=== PATIENT | male | born 1995 | race Caucasian/White ===

== ENCOUNTER 2021-02-19 13:30 | Emergency (ER) | payer MEDICAID ==
[~2021-02-19] VITALS: Ht 152.4 cm; Wt 61.4 kg
[2021-02-19 14:02] VITALS: BP 125/74
== END 2021-02-19 16:52 | disposition home or self-care (01) ==
LOC: ER 13:31
DX: Z20.822 Contact with and (suspected) exposure to COVID-19 (principal)
CPT/HCPCS: 87635; 99283; C9803

== ENCOUNTER 2021-11-19 08:35 | Emergency (ER) | payer MEDICAID, OTHER ==
[~2021-11-19] VITALS: Ht 152.4 cm; Wt 61.4 kg
[~2021-11-19 08:35] MED LIST: ALBU6.7H9 INH
[2021-11-19 09:05] VITALS: BP 117/64
[2021-11-19 09:32] LABS: BASOPHILS # (AUTO) 0.1 X10'3 (0-0.2); BASOPHILS % (AUTO) 1.3 % (0-1); EOSINOPHILS # (AUTO) 0.7 X10'3 (0-0.9); EOSINOPHILS % (AUTO) 17.2 % (0-6); HEMATOCRIT 41.4 % (42.0-52.0); HEMOGLOBIN 13.6 g/dl (14.0-17.9); LYMPHOCYTES # (AUTO) 1.5 X10'3 (1.1-4.8); LYMPHOCYTES % (AUTO) 34.1 % (21-51); MEAN CORPUSCULAR HGB CONC 32.9 g/dL (33.0-36.5); MEAN CORPUSCULAR VOLUME 81.9 FL (78-98); MEAN PLATELET VOLUME 9.8 FL (7.4-10.4); MONOCYTES # (AUTO) 0.4 X10'3 (0-0.9); MONOCYTES % (AUTO) 9.5 % (2-12); NEUTROPHILS # (AUTO) 1.7 X10'3 (1.8-7.7); NEUTROPHILS % (AUTO) 37.9 % (42-75); PLATELET COUNT 208 X10'3 (140-440); RED BLOOD COUNT 5.05 X10'6 (4.70-6.10); RED CELL DISTRIBUTION WIDTH 13.7 % (11.5-14.5); WHITE BLOOD COUNT 4.3 X10'3 (4.5-11.0)
[2021-11-19 09:34] LABS: CLARITY,URINE CLEAR (Clear); COLOR,URINE YELLOW (Yellow); GLUCOSE, URINE NEGATIVE (Neg); KETONES,URINE NEGATIVE (Neg); LEUKOCYTE ESTERASE ,URINE NEGATIVE (Neg); NITRITES, URINE NEGATIVE (Neg); OCCULT BLOOD,URINE NEGATIVE (Neg); PH,URINE 6.5 (4.8-8.0); PROTEIN,URINE NEGATIVE (Neg); UROBILINOGEN,URINE 0.2 E.U/dL (0.2-1.0)
[2021-11-19 09:43] LABS: UA COLLECTION TYPE CLN CATCH MIDSTREAM
[2021-11-19 09:46] LABS: ALANINE AMINOTRANSFERASE 120 U/L (12-78); ALBUMIN 4.2 G/DL (3.4-5.0); ALBUMIN/GLOBULIN RATIO 1.2 (1.1-1.5); ALKALINE PHOSPHATASE 40 IU/L (46-116); ANION GAP 8 (8-16); ASPARTATE AMINO TRANSFERASE 129 U/L (10-37); BILIRUBIN,TOTAL 0.5 MG/DL (0.1-1.0); BLOOD UREA NITROGEN 20 MG/DL (7-18); BUN/CREATININE RATIO 21.1 (5.4-32.0); CALCIUM 9.3 MG/DL (8.5-10.1); CHLORIDE 106 MMOL/L (99-107); CREATININE 0.95 MG/DL (0.60-1.10); GLUCOSE 97 MG/DL (70-104); LIPASE 70 U/L (73-393); SODIUM 141 MMOL/L (135-145); TOTAL CARBON DIOXIDE 27.5 MMOL/L (24-32); TOTAL PROTEIN 7.6 G/DL (6.4-8.2); eGFR > 90 ML/MIN
== END 2021-11-19 10:30 | disposition home or self-care (01) ==
LOC: ER 08:36
DX: R10.31 Right lower quadrant pain (principal); Z79.899 Other long term (current) drug therapy
CPT/HCPCS: 36415; 80053; 81003; 83690; 85025; 99283

== ENCOUNTER 2021-11-25 21:11 | Emergency (ER) | payer OTHER ==
[~2021-11-25] VITALS: Ht 152.4 cm; Wt 61.4 kg
[2021-11-25 21:37] VITALS: BP 119/75
--- NOTE | 2021-11-25 21:50 | NUR ---
URINE SENT TO LAB
[2021-11-25 21:57] LABS: CLARITY,URINE CLEAR (Clear); COLOR,URINE YELLOW (Yellow); GLUCOSE, URINE NEGATIVE (Neg); KETONES,URINE NEGATIVE (Neg); LEUKOCYTE ESTERASE ,URINE NEGATIVE (Neg); NITRITES, URINE NEGATIVE (Neg); OCCULT BLOOD,URINE NEGATIVE (Neg); PROTEIN,URINE NEGATIVE (Neg); UA COLLECTION TYPE NON-SPECIFIED; UROBILINOGEN,URINE 0.2 E.U/dL (0.2-1.0)
== END 2021-11-25 22:39 | disposition home or self-care (01) ==
LOC: ER 21:12
DX: R10.84 Generalized abdominal pain (principal)
CPT/HCPCS: 81003; 99283

== ENCOUNTER 2022-03-04 18:49 | Emergency (ER) | payer OTHER ==
[~2022-03-04] VITALS: Ht 152.4 cm; Wt 61.4 kg
[2022-03-04] MEDS ORDERED: MELO-100 PO (22:20)
[2022-03-04] MEDS ORDERED: ibuprofen tablet 400 MG TABLET PO ONE (22:20)
[2022-03-04] MEDS ORDERED: ACET-1025 PO (22:20)
[2022-03-04] MEDS ORDERED: acetaminophen 325mg tablet PO ONE (22:20)
[2022-03-04 22:32] VITALS: BP 115/75
== END 2022-03-04 22:34 | disposition home or self-care (01) ==
LOC: ER 18:51
DX: M79.605 Pain in left leg (principal); M25.552 Pain in left hip; Z72.89 Other problems related to lifestyle; Z79.899 Other long term (current) drug therapy; W01.0XXA Fall on same level from slipping, tripping and stumbling without subsequent striking against object, initial encounter; Y93.89 Activity, other specified; Y92.89 Other specified places as the place of occurrence of the external cause; Y99.8 Other external cause status
CPT/HCPCS: 99284